=== PATIENT | male | born 1955 | race African-American/Black ===

== ENCOUNTER → 2021-03-23 | Outpatient (CLI) | payer MEDICARE | LOC: NM 08:01 | PROVIDERS: ATTEND Urology | DX: R97.20 Elevated prostate specific antigen [PSA] (principal) | CPT/HCPCS: 78306; A9503; A9570 ==

== ENCOUNTER → 2021-04-17 | Outpatient (CLI) | payer MEDICARE | END | disposition home or self-care (01) | LOC: CT 06:51 | PROVIDERS: ATTEND Urology | DX: R97.20 Elevated prostate specific antigen [PSA] (principal); Z01.812 Encounter for preprocedural laboratory examination; Z20.822 Contact with and (suspected) exposure to COVID-19 | CPT/HCPCS: 71250; 72192; U0002 ==

== ENCOUNTER → 2021-04-22 | Outpatient (CLI) | payer MEDICARE ==
[~2021-04-22] MED LIST: FENTANYL CITRATE/PF 100MCG/2 ML INJ ONE; MIDAZOLAM HCL 2 MG/2 ML VIAL ONE
[2021-04-22 08:25] LABS: HEMOGLOBIN 13.6 g/dL (14.0-18.0)
[2021-04-22 08:48] LABS: INR 0.87; PROTHROMBIN TIME 12.4 seconds (11.9-14.5)
== END ==
LOC: CT 07:59
PROVIDERS: ATTEND Urology
DX: R97.20 Elevated prostate specific antigen [PSA] (principal)
CPT/HCPCS: 20225; 36415; 77012; 85014; 85049; 85610; 85730; 88305; 88311; 88342; J2250; J3010; 99152; 99153